=== PATIENT | female | born 2000 | race Caucasian/White ===

== ENCOUNTER 2024-03-10 14:04 | Inpatient (IN) | payer SELFPAY ==
[2024-03-10] VITALS (26 sets, daily range): BP systolic 119–139; BP diastolic 61–98; PULSE 81–131; RESP 15–19; TEMP 36.7–37.4; O2SAT 94–100; BMI 29.8
[2024-03-10 10:47] LABS: ROM Internal Control Test YES-OK TO RESULT pt. (Internal QC)
[2024-03-10 10:49] LABS: ROM Patient Test POSITIVE (Negative); Record Kit Lot#, ROM+ K1972
[2024-03-10 12:11] LABS: Absolute Lymphocyte Count 1.69 X10^3/uL (0.83-4.51); Absolute Neutrophil Count 7.9 X10^3/uL (2.0-7.7); Basophil# 0.03 X10^3/uL; Basophil% 0.3 % (0-1); Eosinophil# 0.25 X10^3/uL; Eosinophils% 2.3 % (0-5); Hematocrit 38.4 % (37-47); Hemoglobin 12.5 g/dL (12.0-15.0); Lymphocyte # 1.69 X10^3/ul (0.83-4.51); Lymphocyte % 15.3 % (19-41); Mean Corp Hgb Conc 32.6 g/dL (32-36); Mean Corpuscular Hgb 29.3 pg (27.0-32.0); Mean Corpuscular Volume 89.9 fL (81-99); Mean Platelet Vol. 12.3 fl (6.2-12.0); Monocyte# 1.07 X10^3/uL; Monocyte% 9.7 % (0-10); NRBC Flagged by Analyzer 0 % (0-5); Neutrophil # 7.92 X10^3/uL (2.7-7.7); Neutrophil % 71.9 % (47-70); Platelet Count 222 K/mm3 (150-450); RBC Distribution Width CV 14.1 % (11.6-14.6); RBC Distribution Width SD 45.9 fl (35.1-43.9); Red Blood Count 4.27 M/mm3 (4.2-5.4)
[2024-03-10] MEDS: Oxytocin 15 Units/NS 250ml 15 UNITS/250 ML IV.SOLN 2 UNITS IV (12:40)
[2024-03-10 13:12] LABS: HIV - WCH Non-Reactive (Nonreactive); Rubella IgG Non-Reactive (Nonreactive); Syphilis Antibodies Non-reactive
--- NOTE | 2024-03-10 13:16 | PCM.HP.OB ---
HPI - General General Date of Admission: 03/10/24 Date of Service: 03/09/24 Chief Complaint: SROM HPI Narrative KIARA HIGGINS, is a 23 F who presents SROM 0300 03/08/24. Clear. Has not started labor after 48 hours. Planned digital proofing and platemaker delivery at home. Uncomplicated . Vertex on bedside US. GBS unknown and low risk. Maternal Data Information Final JOHN: 03/09/24 Gestational age: 40+1 PFSH PFSH Allergy/AdvReac Type Severity Reaction Status Date / Time No Known Allergies Allergy Verified 03/10/24 11:49 Social History Smoking Status: Never smoker History 1 Elective abortions Hx Para 0 Spontaneous abortions Hx # Term Pregnancies Ectopic pregnancies Hx # Pregnancies Multiple births # of living children NST FHR Rate Baby A Baseline: 145 Variability:: Moderate Accelerations:: 15 x 15 Decelerations:: None NST Reactive:: Yes FHR Category:: Category I Uterine Activity:: minimal Vital Signs Vital Signs Vital Signs: 03/10/24 10:22 03/10/24 10:22 03/10/24 10:22 Temperature Temperature Source Temporal Pulse Rate 81 Respiratory Rate Blood Pressure 120/83 H BP Systolic 120 BP Diastolic 83 Pulse Ox 03/10/24 10:22 03/10/24 10:22 03/10/24 10:22 Temperature 98.2 F Temperature Source Pulse Rate Respiratory Rate 15 Blood Pressure BP Systolic BP Diastolic Pulse Ox 99 03/10/24 12:34 03/10/24 12:34 03/10/24 12:34 Temperature Temperature Source Temporal Pulse Rate Respiratory Rate 16 Blood Pressure BP Systolic BP Diastolic Pulse Ox 97 03/10/24 12:34 03/10/24 12:36 03/10/24 12:36 Temperature 98.7 F Temperature Source Pulse Rate 95 Respiratory Rate Blood Pressure 133/61 H BP Systolic 133 BP Diastolic 61 Pulse Ox 03/10/24 12:36 03/10/24 12:41 03/10/24 12:41 Temperature Temperature Source Pulse Rate 83 Respiratory Rate Blood Pressure BP Systolic BP Diastolic Pulse Ox 98 98 03/10/24 12:46 03/10/24 12:46 Temperature Temperature Source Pulse Rate 91 Respiratory Rate Blood Pressure BP Systolic BP Diastolic Pulse Ox 98 Weight Weight: 76.374 kg Body Mass Index (BMI) 29.8 Labs Labs Labs: Blood Type A POSITIVE Antibody Screen NEGATIVE Hct 38.4 % (37-47) Hgb 12.5 g/dL (12.0-15.0) Syphilis Total Ab Non-reactive Rubella IgG Antibody Non-Reactive (Nonreactive) Hep Bs Antigen Non-Reactive (Nonreactive) Hepatitis C Antibody Non-Reactive (Nonreactive) HIV 1&2 Antibody Non-Reactive (Nonreactive)
[2024-03-10 13:31] LABS: Hepatitis B Surface Antigen Non-Reactive (Nonreactive); Hepatitis C Antibody Non-Reactive (Nonreactive)
[2024-03-10 13:58] LABS: Amphetamine Urine VISTA NEGATIVE (<1000 ng/mL); Barbiturate Urine VISTA NEGATIVE (< 200 ng/mL); Benzodiazepine Urine VISTA NEGATIVE (< 200 ng/mL); Cocaine Urine VISTA NEGATIVE (< 300 ng/mL); Ecstacy Urine VISTA NEGATIVE (< 500 ng/mL); Methadone Urine VISTA NEGATIVE (< 300 ng/mL); PCP Urine VISTA NEGATIVE (< 25 ng/mL); THC Urine VISTA NEGATIVE (< 50 ng/mL); Vista UDS pH Range 5
[2024-03-10 14:06] LABS: Bacteria 0 SEEN /hpf (None Seen); Mucous, Urine 0 SEEN /hpf (<or=2+)
[2024-03-10 14:14] LABS: Color, Urine Straw (Yellow); Glucose, Dipstick Normal (Normal); Ketone-Dipstick 5 mg/dl (Negative); Leukocyte Esterase-Dipstick 500 /ul (Negative); Nitrite-Dipstick Negative (Negative); Occult Blood-Urine 250 /ul (Negative); Protein-Dipstick 30 mg/dl (Negative); Urine Bilirubin Dipstick Negative (Negative); Urine Clarity Clear (Clear); Urine Urobilinogen Normal (Normal)
[2024-03-10 14:35] LABS: Red Blood Cells-Urine 0-5 SEEN /hpf (0-5); Squamous Epithelial Cells - UA 0-5 SEEN /hpf (5-10); White Blood Cells 0-5 SEEN /hpf (0-5)
[2024-03-10] MEDS: Penicillin G Pot 5,000,000 UNITS in 0.9% Normal Saline (100mL MB+) 100 ML 150 UNITS IV (14:54)
[2024-03-10] MEDS: Lactated Ringers 1,000 ML 150 ML IV (15:58)
[2024-03-10 16:55] LABS: Bedside Glucose 89 mg/dL (74-106)
--- NOTE | 2024-03-10 17:45 | PCM.PN.OB ---
Subjective Subjective Cat I tracing. Pit at 6 MUs. 1/80/-1 uncomfortable with contractions. Objective Data Objective Data Vital Signs: Vital Signs Temp Pulse Resp BP Pulse Ox 98.1 F 114 H 16 135/71 H 100 03/10/24 17:24 03/10/24 17:27 03/10/24 17:24 03/10/24 17:26 03/10/24 17:27 Weight: 76.374 kg Body Mass Index (BMI) 29.8 Intake & Output: Intake and Output for Last 24 Hours 03/08/24 03/09/24 03/10/24 23:59 23:59 23:59 Intake Total 2.63 / 2.63 Output Total 300 / 300 Balance -297.37 / -297.37 Lab / Micro Data 03/10/24 11:50 Labs: Laboratory Results - last 24 hr 03/10/24 10:30: Vag Amniotic Fld Detect POSITIVE H 03/10/24 11:50: WBC 11.0, RBC 4.27, Hgb 12.5, Hct 38.4, MCV 89.9, MCH 29.3, MCHC 32.6, RDW Std Deviation 45.9 H, RDW Coeff of Evelin 14.1, Plt Count 222, MPV 12.3 H, Immature Gran % (Auto) 0.500, Neut % (Auto) 71.9 H, Lymph % (Auto) 15.3 L, [place] % (Auto) 9.7, Eos % (Auto) 2.3, Baso % (Auto) 0.3, Absolute Neuts (auto) 7.9 H, Absolute Lymphs (auto) 1.69, Nucleated RBC % 0, Syphilis Total Ab Non-reactive, Hep Bs Antigen Non-Reactive, Hepatitis C Antibody Non-Reactive, HIV 1&2 Antibody Non-Reactive, Rubella IgG Antibody Non-Reactive, Blood Type A POSITIVE, Antibody Screen NEGATIVE 03/10/24 13:05: Urine Color Straw, Urine Clarity Clear, Urine pH 5.0, Ur Specific [place] 1.010, Urine Protein 30 H, Urine Glucose (UA) Normal, Urine Ketones 5 H, Urine Occult Blood 250 H, Urine Nitrite Negative, Urine Bilirubin Negative, Urine Urobilinogen Normal, Ur Leukocyte Esterase 500 H, Urine RBC 0-5 SEEN, Urine WBC 0-5 SEEN, Ur Squamous Epith Cells 0-5 SEEN, Urine Bacteria 0 SEEN, Urine Mucus 0 SEEN, Urine Opiates Screen NEGATIVE, Urine Methadone Screen NEGATIVE, Ur Barbiturates Screen NEGATIVE, Ur Phencyclidine Scrn NEGATIVE, Ur Amphetamines Screen NEGATIVE, MDMA (Ecstasy) Screen NEGATIVE, U Benzodiazepines Scrn NEGATIVE, Urine Cocaine Screen NEGATIVE, U Cannabinoids Screen NEGATIVE, Ur Drug Screen Comment 03/10/24 16:37: POC Glucose 89 Micro: Microbiology 03/10/24 13:05 Urine, Clean Catch Chlamydia/Neisseria (PCR) - Final 03/10/24 13:05 Genital vaginal Group B Streptococcus (PCR) - Final Streptococcus agalactiae (B) Assessment & Plan (1) SROM (spontaneous rupture of membranes): (2) 40 weeks gestation of : PLAN: Plan Continue current pitocin dose. Epidural Prn
[2024-03-10] MEDS: Penicillin G 3,000,000 Units 50 ML 100 UNITS IV ×2 (18:52→23:04)
[2024-03-11] VITALS (82 sets, daily range): BP systolic 98–140; BP diastolic 50–96; PULSE 72–115; RESP 14–18; TEMP 36.6–37.2; O2SAT 93–100
[2024-03-11] MEDS: Lactated Ringers 1,000 ML 50 ML IV (02:08)
[2024-03-11] MEDS: Lactated Ringers 1,000 ML 999 ML IV (02:21)
[2024-03-11] MEDS: fentaNYL-bupivacaine (epidural) 100 ML BAG EPIDURAL ×3 (03:23→14:18)
[2024-03-11] MEDS: Penicillin G 3,000,000 Units 50 ML 100 UNITS IV ×5 (03:37→19:49)
[2024-03-11] MEDS: Lactated Ringers 1,000 ML 200 ML IV ×2 (10:18→15:44)
[2024-03-11] MEDS: DiphenhydrAMINE 25 MG Capsule 50 MG PO (14:47)
[2024-03-11] MEDS: Oxytocin 15 Units/NS 250ml 15 UNITS/250 ML IV.SOLN 16 UNITS IV (19:38)
[2024-03-11] MEDS: Oxytocin 15 Units/NS 250ml 15 UNITS/250 ML IV.SOLN 83 UNITS IV (21:16)
--- NOTE | 2024-03-11 21:25 | OB.VAGDELI_ITS ---
Assessment & Plan (1) 40 weeks gestation of : (2) SROM (spontaneous rupture of membranes): (3) (spontaneous vaginal delivery): Maternal Data Information Final JOHN: 03/09/24 Final JOHN Source: LMP Gestational age: 40+2 Vaginal Delivery Maternal Presentation Maternal Presentation: Spontaneous Rupture of Membranes Maternal Presentation: SROM approximately 48 hours prior to presentation. Corporate Treasury Analyst patient transfer of care Type of Induction: Pitocin Medical Reason for Induction: Premature Rupture of Membranes Vaginal Delivery Information Procedure Performed: Spontaneous Vaginal Delivery Surgeon/Practitioner: Archana Israel Date of Procedure: 03/11/24 Pre-Procedure Diagnosis: PROM Post-Procedure Diagnosis: Type of anesthesia: Epidural Estimated Blood Loss: 200 cc Time of Delivery: 20:31 Findings Description of procedure: Pitocin augmentation after 48 hours of no labor following PROM. Slow progress initially. Did progress to 6 cm with cervical swelling. Patient give PO Benadry l. Cervix swelling resolved. Progressed to complete and pushed for about 2 hours. Delivered OA over an intact perineum. The anterior and posterior shoulders delivered with gentle traction. The cord was clamped and cut. The placenta delivered spontaneously. A second degree laceration was repaired with 2-0 vicryl. A small right periurethral laceration was repaired. All sponge, needle, and instrument counts were correct Presentation: Vertex and TRICIA Amniotic Membrane Rupture Type: Spontaneous Amniotic Fluid Description: Clear Placental Delivery Description: Spontaneous Placenta Disposition: [facility] Cord Vessel Description: 3 Vessels Cord Entanglement: None A Gender: Male (1 minute): 9 (5 minute): 9 Delayed Cord Clamping: Yes Cruller Maker lead sales consultant: No Post Vaginal Deli Medications given after delivery: IV Pitocin Episiotomy Description: None Laceration: Midline and 2nd degree (with minot right periurethral) Complication Complications: No
[2024-03-12 03:46] VITALS: BP 136/88; PULSE 92; RESP 16; TEMP 36.9; O2SAT 96
--- NOTE | 2024-03-12 07:59 | PCM.PN.OB ---
Subjective Subjective Doing well. Ambulating and voiding without difficulty. Mild lochia. Breast feeding. Objective Data Objective Data Vital Signs: Vital Signs Temp Pulse Resp BP Pulse Ox O2 Del Method 98.4 F 92 16 136/88 H 96 Room Air 03/12/24 03:46 03/12/24 03:46 03/12/24 03:46 03/12/24 03:46 03/12/24 03:46 03/12/24 03:46 Oxygen Delivery Method Room Air Weight: 76.374 kg Body Mass Index (BMI) 29.8 Intake & Output: Intake and Output for Last 24 Hours 03/10/24 03/11/24 03/12/24 23:59 23:59 23:59 Intake Total 865.13 / 865.13 5483.09 / 5483.09 247.62 / 247.62 Output Total 425 / 425 2300 / 2300 Balance 440.13 / 440.13 3183.09 / 3183.09 247.62 / 247.62 Lab / Micro Data 03/10/24 11:50 Micro: Microbiology 03/10/24 13:05 Urine, Clean Catch Chlamydia/Neisseria (PCR) - Final 03/10/24 13:05 Genital vaginal Group B Streptococcus (PCR) - Final Streptococcus agalactiae (B) ROS Constitutional Constitutional: Denies fatigue, fever(s) or malaise Eyes Eyes: Denies change in vision ENT HEENT: Denies dizziness or headache(s) Cardiovascular Cardiovascular: Denies chest pain, dyspnea or lightheadedness Respiratory/Chest Respiratory/Chest: Denies cough or dyspnea Gastrointestinal Gastrointestinal: Denies change in bowel habits Genitourinary Genitourinary: Denies burning urination or genital lesions Integumentary Integumentary: Denies rash Neurologic Neurologic: Denies confusion, dizziness, headache(s), numbness or weakness Physical Exam Const alert and no apparent distress Narrative: Fundus firm, below umbilicus. Assessment & Plan (1) (spontaneous vaginal delivery): PLAN: Plan Routine care
[2024-03-12 09:52] VITALS: BP 122/81; PULSE 91; RESP 16; TEMP 36.4
[2024-03-12 12:45] VITALS: BP 118/72; PULSE 72; RESP 16; TEMP 36.1; O2SAT 97
[2024-03-12 17:50] VITALS: BP 118/82; PULSE 79; RESP 16; TEMP 36.1
[2024-03-12 20:30] VITALS: BP 125/86; PULSE 71; RESP 16; TEMP 36.3; O2SAT 98
--- NOTE | 2024-03-12 22:11 | PCM.DC.SUM ---
Providers Date of Admission: 03/10/24 Date of Discharge: 03/12/24 Primary Care Physician: No Primary Care Phys Reason For Visit: VAG Diagnosis Discharge Diagnosis (1) (spontaneous vaginal delivery): Status: Acute Code(s): O80 - Encounter for full-term uncomplicated delivery Plan Routine care Hospital Course Operations None Procedures None Summary of Care Provided Minutes Spent on Discharge: 20 Hospital Course: Admitted after 48 hours of PROM. A febrile. Rapid GBS positive. Received adequate PCN doses. Pitocin augmentation. Delivered via NVSD. Uncomplicated Physical Exam Const alert and no apparent distress Narrative: Fundus firm, below umbilicus. Weight / BMI Weight Weight: 76.374 kg Body Mass Index (BMI) 29.8 ABG / Lab / Microbiology Data 03/10/24 11:50 Microbiology: Microbiology 03/10/24 13:05 Urine, Clean Catch Chlamydia/Neisseria (PCR) - Final 03/10/24 13:05 Genital vaginal Group B Streptococcus (PCR) - Final Streptococcus agalactiae (B) D/C Instructions May resume sexual activity in: 6 weeks DC O2, CPAP, BIPAP Needs Home O2 Discharge instructions: No Please Follow Up With: Leena Pressley MD When: Follow up with our office in 1-2 and 6 weeks or as needed. [phone] Meaningful Use Info Meaningful Use Meaningful Use Diagnoses (Choose all that apply): None applicable Ischemic Stroke Statin Dosing Therapy Reference: STATIN DOSE THERAPY REFERENCE: * Patients > 75 years receive moderate or high dose statin therapy. * Patients 75 years or YOUNGER should receive HIGH intensity statin dose unless contraindicated. You will be required to document reason for non-treatment if statin daily dose does not meet guidelines. HIGH DOSE STATIN THERAPY DAILY Atorvastatin > than or = to 40 mg Rosuvastatin > than or = to 20 mg Amlodipine + Atorvastatin > than or = to 2.5/40 mg Ezetimibe + Simvastatin 10/80 mg Simvastatin 80mg Discharge Plan Admission Admit Date/Time: 03/10/24 14:04 Primary Reason for Your Visit: delivery Attending Provider: Archana Israel Primary Care Provider: Care Physician,No Primary Instructions Patient Instructions: After a Vaginal Discharge Orders/Prescriptions Referrals / Follow Up: Care Physician,No Primary [Primary Care Provider] - Disposition Disposition (needs filled in before D/C Order can be placed): Home, Self Care
== END 2024-03-12 23:05 | disposition home or self-care (01) | DRG 806 ==
PROVIDERS: Admitting Provider Obstetrics & Gynecology; Referring Provider Obstetrics & Gynecology; Visit Provider Obstetrics & Gynecology
DX: O42.12 Full-term premature rupture of membranes, onset of labor more than 24 hours following rupture (principal); Z37.0 Single live birth; O98.82 Other maternal infectious and parasitic diseases complicating childbirth; Z3A.40 40 weeks gestation of pregnancy; B95.1 Streptococcus, group B, as the cause of diseases classified elsewhere; O70.1 Second degree perineal laceration during delivery
CPT/HCPCS: 59025; 59050; 80307; 81001; 82962; 84112; 85025; 86703; 86762; 86780; 86803; 86850; 86900; 86901; 87340; 87491; 87591; 87653; 99221; G0378